=== PATIENT | female | born 1985 | race Caucasian/White ===

== ENCOUNTER 2024-05-01 10:27 | Day surgery (SDC) | payer MEDICAID, SELFPAY ==
--- NOTE | 2024-04-30 17:05 | PCM.HP.BLA ---
History and Physical Date of Admission: 05/01/24 HPI: The patient is a 39 year old female presenting for pre-operative visit. She is scheduled for Suction D&C, for 9 week missed ab on 05/01/24. Procedure discussed along with risks, benefits and complications. Other alternatives discussed for management. Consent form signed? Yes. PAST MEDICAL HISTORY PAST MEDICAL HISTORY Diagnosis Date ? Acne vulgaris ? Attention deficit hyperactivity disorder (ADHD), unspecified ADHD type ? Chronic hypertension ? Generalized anxiety disorder ? Goiter ? Graves disease ? History of pre-eclampsia ? HTN (hypertension) ? Personal history of nicotine dependence ? Trichomoniasis PAST SURGICAL HISTORY PAST SURGICAL HISTORY Procedure Laterality Date ? TOOTH EXTRACTION CURRENT MEDICATIONS Current Outpatient Medications Medication Sig Dispense Refill ? labetalol (TRANDATE) 300 mg tablet Take 300 mg by mouth three times a day. ? metroNIDAZOLE (FLAGYL) 500 mg tablet Take 1 tablet by mouth two times a day for 7 days. 14 tablet 0 ? metroNIDAZOLE (FLAGYL) 500 mg tablet Take 1 tablet by mouth two times a day for 7 days. 14 tablet 0 No current facility-administered medications for this visit. ALLERGIES: Patient has no known allergies. PERSONAL HISTORY: SOCIAL HISTORY Social History Tobacco Use ? Smoking status: Former ? Smokeless tobacco: Never Vaping Use ? Vaping Use: Never used Substance Use Topics ? Alcohol use: Not Currently Comment: once every 6 months ? Drug use: Never FAMILY HISTORY: FAMILY HISTORY FAMILY HISTORY Problem Relation Age of Onset ? other (heart issues) Mother Heart valve mitral valve ? other (epilepsy) Father ? Hypertension Maternal Grandmother ? Hyperthyroidism Maternal Grandmother ? No Known Problems Maternal Grandfather ? No Known Problems Paternal Grandmother ? No Known Problems Paternal Grandfather REVIEW OF SYMPTOMS: PHYSICAL EXAMINATION: VITALS: Blood pressure 124/78, pulse 82, height 171.5 cm (5' 7.5), weight 85.7 kg (189 lb), last menstrual period 02/20/2024, SpO2 100%, not currently . GENERAL: The patient is well nourished, well hydrated in no acute distress. , The patient is oriented to time, place, and person. NECK: Supple. No lynphadenopathy, normal thyroid, no thyromegaly. LUNGS: Clear to auscultation bilaterally. no wheezes, rhonchi or rales HEART: Regular rate and rhythm, Normal heart sounds, and No murmurs or gallops IMPRESSION: 9 week missed PLAN: The risks/benefits/alternatives and personal involved for the planned suction D&C were reviewed with the patient. Her questions were answered to her satisfaction and she desires to proceed. Consent was signed. I reviewed with her postop instructions and expectations. Desires pathology disposal of POCs declines genetic testing of POCs declines contraception at time of surgery preop flaygl for trich and doxy for routine prophylaxis I have reviewed and updated past medical and surgical history, medications and allergies Assessment & Plan Assessment/Plan (1) Missed : (2) 9 weeks gestation of : (3) Trichomonal infection:
--- NOTE | 2024-05-01 10:44 | PCM.PRE.AN2 ---
ASA Classification* ASA Classification ASA Classification: 2 Assessment & Plan Anesthesia* Anesthesia Assessment Anesthesia Assessment: Discussed sedation and/or anesthesia options, risks, benefits, and alternatives with patient/parents/legal guardian/POA. Questions invited. The patient/parents/legal guardian/POA seems to understand and agrees to proceed with anesthesia plan. Reviewed the physical assessment, medical history, allergy history and patient home medications list prior to surgery/procedure/anesthetic and documented any changes. Performed airway and anesthesia risk assessments. 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 When Was Last Pacemaker Check QUESTION #4 FULL TEXT: You/Your Family Experience fever (hyperthermia) with Anesthesia Last Oral Intake Last Oral intake: Last Oral Intake NPO since Meds taken in AM with sips of water? 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 Has anyone observed you stop No 04/30/24 11:50 breathing during sleep? STOP Results Negative 04/30/24 11:50 QUESTION #5 FULL TEXT : Do you snore loudly (louder than talking or can be heard through closed doors)? 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 Specify any problems Hx of Preganancy in last 3 Yes 04/30/24 11:50 Months Nurse Filling Out Transfusion VCHRISTIN 04/30/24 11:50 & Questions: Date: 04/30/24 04/30/24 11:50 Time: 11:51 04/30/24 11:50 Patient unable to answer at this time (ie. 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: /Reproductive Hx- high school assistant football coach Hx Now Yes 04/30/24 11:50 Gestational Age (in weeks): EDC: Hx Hx Para Hx Section SAB No 04/30/24 11:50 Active Medications Active Medications: Current Medications Generic Name Dose Route Start Last Admin Trade Name Freq PRN Reason Stop Dose Admin Doxycycline Monohydrate 200 mg 05/01/24 12:00 Doxycycline 100 Mg Capsule PO 05/01/24 12:01 PREOP ONE Metronidazole 500 mg in 100 mls @ 100 mls/hr 05/01/24 12:00 Flagyl IV 05/01/24 12:59 PREOP ONE Lactated Ringer's 1,000 mls @ 15 mls/hr 05/01/24 10:45 IV .Q48H SHARI PFSH Medical History Anemia DVT (deep venous thrombosis) Excessive bleeding Non-smoker Hypertension Home Medications ?Medication ?Instructions ?Recorded ?Last Taken ?Type labetalol 300 mg tablet 300 mg PO TID 04/30/24 Unknown History Allergy/AdvReac Type Severity Reaction Status Date / Time No Known Allergies Allergy Verified 04/30/24 11:45 Social History Smoking Status: Never smoker Review of Systems (Anesthesia) ROS Narrative System reviewed and no additional complaints, except as documented.
[2024-05-01 10:59] VITALS: BP 113/81; PULSE 82; RESP 16; TEMP 36.1; O2SAT 100; BMI 29.7
[2024-05-01] MEDS: Doxycycline 100 MG CAPSULE 200 MG PO (11:04)
[2024-05-01] MEDS: Lactated Ringers 1,000 ML 15 ML IV (11:04)
[2024-05-01] MEDS: Lubricating Jelly 60 GM Tube 30 GM (11:11)
[2024-05-01 11:22] LABS: Hematocrit 39.4 % (37-47); Hemoglobin 13.3 g/dL (12.0-15.0); Mean Corp Hgb Conc 33.8 g/dL (32-36); Mean Corpuscular Hgb 31.4 pg (27.0-32.0); Mean Corpuscular Volume 92.9 fL (81-99); Mean Platelet Vol. 10.6 fl (6.2-12.0); Platelet Count 297 K/mm3 (150-450); RBC Distribution Width CV 12.6 % (11.6-14.6); Red Blood Count 4.24 M/mm3 (4.2-5.4); White Blood Count 7.6 K/mm3 (4.4-11.0)
--- NOTE | 2024-05-01 12:00 | POC_PTH ---
PATIENT: ABBEY ABERNATHY [place] [facility] [place][id number] AGE/SX: 39/F ROOM: RE05/01/[address]: Dr. Nini James MD : 1985 BED: DIS: 05/01/2024 SPEC #: [id number] RECD: 05/01/24 13:48 STATUS: YUDELKA DANYA #: [id number] CALIN: 05/01/24 12:[address]: Nini James DEPT: SURGICAL PATHOLOGY RECD BY: Angie Lo ENTERED: 05/02/24 07:58 SP TYPE: PROD CONC OTHR DR: No Primary Care Phys Tissues: Product of conception, NOS Procedures: Surgery Specimen Level IV HEADER OPERATION: D&C, suction PRE-OP DIAGNOSIS: Missed , 9 weeks gestation of , trichomonal infection TISSUE SUBMITTED: Products of conception MICROSCOPIC DIAGNOSIS Endometrium, curettage: Chorionic villi, decidualized stroma and trophoblastic cells (products of conception). AM: 05/03/2024 MICROSCOPIC DESCRIPTION Slides are reviewed. GROSS DESCRIPTION Received in fixative is one container labeled with the patient's name and designated Products of conception. The specimen consists of multiple irregular fragments of fletcher soft tissue that in aggregate measure 8.0 x 8.0 x 1.0 cm. Cnc Machine Setter portions are submitted in two cassettes. BRITNI/ 05/02/2024 TC:5 CPT:26413
[2024-05-01 12:05] LABS: hCG Titer Quant., Serum 9473 mIU/mL (1-3)
--- NOTE | 2024-05-01 12:35 | OP.PCM_ITS ---
Report of Operation Date of Procedure: 05/01/24 Pre-Operative Diagnosis: Missed at 9 weeks Post-Operative Diagnosis: Same Surgery/Procedure Performed:: Suction dilation and curettage Description of Surgical Findings:: 9 week size uterus and products of conception Surgeon: Dimple Taylor sewer digger: None Type of Anesthesia: MAC Specimen's removed: products of conception Estimated Blood Loss (mL): 75 Fluids Replaced: 1000ml Description of Procedure: Patient taken to OR where MAC anesthesia was placed and foung to be adequate. Patient placed on dorsal lithotomy position. She was prepped and draped. Cervix grasped with tenaculum and gently dilated. #9 suction curette gently inserted and removed 6 times for good return of POCs. Gentle sharp curettage performed to confirm no retained no POC's. TAUS also performed. At end of pro cedure vaginal sweep performed. All counts correct. Procedure Start Time: 12:43 Procedure Stop Time: 12:56 Complications none Admit VTE Documentation VTE Present on Admission: No
--- NOTE | 2024-05-01 13:03 | PCM.DC ---
Discharge Instructions Diet Discharge Diet: No restrictions Activity Discharge Activity: May Not Shower May resume sexual activity in: 2 weeks Weight Bearing Status: Weight bearing as tolerated Dressing / Incision Call your doctor if you observe: Fever of 101 or Higher, Coldness, Increased Pain, Change in Color, Inability to urinate, Using more than 1 pad per hour, Shortness of breath, Dizziness, Fainting spells, Chest pain, Increased palpitations (irregular heartbeat), Calf discomfort and Uncontrolled pain Follow Up Care Please Follow Up With: Dimple Taylor When: 2 weeks Test Results: Test results from this visit will be discussed in further detail at your follow-up appointment, if applicable. Discharge Plan Admission Primary Reason for Your Visit: Miscarriage Attending Provider: Nini James Primary Care Provider: Care PhysicianTory Primary Instructions Print Language: Japanese Discharge Orders/Prescriptions Prescriptions: No Action labetalol 300 mg tablet 300 mg PO TID Disposition Disposition (needs filled in before D/C Order can be placed): Home, Self Care
[2024-05-01 13:05] VITALS: BP 104/69; BP 113/81; PULSE 76; RESP 16; TEMP 36.2; O2SAT 96
[2024-05-01 13:06] VITALS: BP 104/69; PULSE 70; RESP 14; TEMP 36.3; O2SAT 98
--- NOTE | 2024-05-01 13:06 | PCM.POST.ANE ---
Anesthesia: Postop Eval I Current Vital Signs Temperature: 97.3 F Pulse Rate: 70 Blood Pressure: 104/69 Respiratory Rate: 14 Pulse Ox: 98 Oxygen Delivery Method: Room Air Assessment Airway patent: Yes Spontaneous unlabored respirations: Yes Mental status: Awake and Calm nausea: No Vomiting: No Anesthesia Complication: No Fluid Hydration Crystalloid volume administer (ml): 800 Total IV fluid infused: 800 Progress Note Anesthesia document: Postop Eval 1 completed: Yes
[2024-05-01 13:10] VITALS: BP 101/69; BP 113/81; PULSE 76; RESP 16; O2SAT 95
[2024-05-01 13:15] VITALS: BP 112/78; BP 113/81; PULSE 78; RESP 16; TEMP 36.9; O2SAT 98
[2024-05-01 13:56] VITALS: BP 113/81
--- NOTE | 2024-05-01 14:11 | POSTOPAN2_ITS ---
Anesthesia Postop Eval I Sum Postop Eval Completion status Anesthesia document: Postop Eval 1 completed: Yes Anesthesia Postop Eval I Summary Anesthesia Postop Eval I Summary: Anesthesia Postop Eval I: Assessment Summary Airway patent Yes 05/01/24 13:06 DUMPER OPERATOR.[email or web address] Spontaneous unlabored Yes 05/01/24 13:06 DUMPER OPERATOR.[email or web address] respirations Mental status Awake,Calm 05/01/24 13:06 DUMPER OPERATOR.PADMALOU nausea No 05/01/24 13:06 DUMPER OPERATOR.PADMALOU Vomiting No 05/01/24 13:06 DUMPER OPERATOR.PADMALOYolanda Anesthesia Postop Eval I: Fluid Summary Crystalloid volume administer 800 05/01/24 13:06 DUMPER OPERATOR.PADMALOYolanda (ml) Colloids volume administered ( ml) Blood Product volume administered (ml) Total IV fluid infused 800 05/01/24 13:06 DUMPER OPERATOR.BHAVESH Anesthesia Postop Eval I: Summary Notes Anesthesia Complication No 05/01/24 13:06 DUMPER OPERATOR.BHAVESH Anesthesia Complication Comment: Post-operative progress note Anesthesia: Postop Eval II Evaluation Mental status: Awake and Calm Pain Level: 1 nausea: No Vomiting: No Complications Anesthesia Complication: No
--- NOTE | 2024-05-01 14:11 | PCM.POSTANE2 ---
Anesthesia Postop Eval I Sum Postop Eval Completion status Anesthesia document: Postop Eval 1 completed: Yes Anesthesia Postop Eval I Summary Anesthesia Postop Eval I Summary: Anesthesia Postop Eval I: Assessment Summary Airway patent Yes 05/01/24 13:06 PATTERN ROOM ATTENDANT.[email or web address] Spontaneous unlabored Yes 05/01/24 13:06 PATTERN ROOM ATTENDANT.[email or web address] respirations Mental status Awake,Calm 05/01/24 13:06 PATTERN ROOM ATTENDANT.PADMALOU nausea No 05/01/24 13:06 PATTERN ROOM ATTENDANT.PADMALOU Vomiting No 05/01/24 13:06 PATTERN ROOM ATTENDANT.PADMALOYolanda Anesthesia Postop Eval I: Fluid Summary Crystalloid volume administer 800 05/01/24 13:06 PATTERN ROOM ATTENDANT.PADMALOYolanda (ml) Colloids volume administered ( ml) Blood Product volume administered (ml) Total IV fluid infused 800 05/01/24 13:06 PATTERN ROOM ATTENDANT.BHAVESH Anesthesia Postop Eval I: Summary Notes Anesthesia Complication No 05/01/24 13:06 PATTERN ROOM ATTENDANT.BHAVESH Anesthesia Complication Comment: Post-operative progress note Anesthesia: Postop Eval II Evaluation Mental status: Awake and Calm Pain Level: 1 nausea: No Vomiting: No Complications Anesthesia Complication: No
--- NOTE | 2024-05-01 14:15 | SUR.PHASEII ---
OFFICE CALLED AGAIN, STATES THEY STILL HAVEN'T RECEIVED FAX FOR DR TO SIGN. ATTEMPTED TO FAX PAPERWORK AGAIN
== END 2024-05-01 14:15 | disposition home or self-care (01) ==
LOC: SDC 10:31 → AC 10:33
PROVIDERS: Obstetrics & Gynecology; Visit Provider Obstetrics & Gynecology
DX: O02.1 Missed abortion (principal); I10 Essential (primary) hypertension; Z79.899 Other long term (current) drug therapy; Z87.891 Personal history of nicotine dependence; Z86.718 Personal history of other venous thrombosis and embolism
CPT/HCPCS: 59820; 01965; 84702; 85027; 88305; J7120; J2405

== ENCOUNTER 2025-02-15 18:00 | Outpatient (CLI) | payer MEDICAID, SELFPAY ==
[2025-02-15 18:15] VITALS: BMI 31.6
[2025-02-15 18:20] VITALS: BP 135/98; PULSE 85
[2025-02-15 18:35] VITALS: BP 135/87; PULSE 82
[2025-02-15 18:50] VITALS: BP 130/91; PULSE 82
[2025-02-15 19:04] VITALS: BP 135/92; PULSE 79
[2025-02-15 19:19] VITALS: BP 134/95; PULSE 79
[2025-02-15] MEDS: Lactated Ringers 1,000 ML 999 ML IV (19:32)
[2025-02-15 19:39] LABS: Hematocrit 38.2 % (37-47); Mean Corpuscular Hgb 31.9 pg (27.0-32.0); Mean Corpuscular Volume 93.9 fL (81-99); Mean Platelet Vol. 11.4 fl (6.2-12.0); Platelet Count 274 K/mm3 (150-450); RBC Distribution Width CV 12.7 % (11.6-14.6); Red Blood Count 4.07 M/mm3 (4.2-5.4); White Blood Count 8.1 K/mm3 (4.4-11.0)
[2025-02-15 19:56] LABS: AST(SGOT) 38 U/L (<=31); Alanine Aminotransfer ALT/SGPT 31 U/L (<=34); Creatinine, Serum 0.66 mg/dL (0.70-1.20); EST Glomerular Filtration Rate 115 (>60)
[2025-02-15 20:08] LABS: Protein, Urine (Random) 15.2 mg/dL (0.0-12.0); Protein:Creat Ratio 76 mg/g CRE (0-200)
[2025-02-15 20:20] VITALS: BP 125/82; PULSE 76; RESP 16; TEMP 36.4
--- NOTE | 2025-02-15 20:37 | OB.TRI.HP_ITS ---
HPI - General General Date of Admission: 02/15/25 Date of Service: 02/15/25 Chief Complaint: nonreactive NST HPI Narrative ABBEY ABERNATHY, is a 39 F who presents -1-1-4 at 33 weeks with a EDC of 04/02/2025 presents from the office for prolonged monitoring. She had a nonreactive NST in the office. Patient [place] any headache, visual changes, contractions, epigastric pain or significant increase in edema. Patient states her blood pressures at home have been running in the 130s over 85-90 range. She was told last week to start Procardia but was afraid it would make my blood pressure too low she has a history of preeclampsia in a previous . is complicated 8 by advanced maternal age, abnormal Pap smear with high risk HPV positive, Rh-, history of preeclampsia, history of Graves' disease and is on Synthroid, depression, heartburn, nausea and vomiting in and history of trichomonas earlier in . [facility] Medical History Anemia DVT (deep venous thrombosis) Excessive bleeding Non-smoker Hypertension Home Medications ?Medication ?Instructions ?Recorded ?Last Taken ?Type labetalol 300 mg tablet 300 mg PO TID 04/30/2402/15 History bupropion HCl 100 mg tablet 100 mg PO DAILY 02/15/25 0 02/14/25 History famotidine 40 mg tablet 40 mg PO DAILY 02/15/25 Unkn own History nifedipine 30 mg tablet,extended 30 mg PO DAILY Unknown History release 24 hr vit 33-iron 29 mg-folic 1 pkg PO DAILY pregna ncy 02/15/25 02/14/25 History acid 1 mg-dha 250 mg oral combo pack (Select-OB + DHA) Allergy/AdvReac Type Severity Reaction Status Date / Time No Known Allergies Allergy Verified 02/15/25 18:25 Social History Smoking Status: Never smoker Physical Exam Narrative Abdomen: Soft, nondistended, fundal height gravid appropriate for gestational age Extremities: 1+ edema, 2+ DTRs, no clonus Consent for sensitive exam performed and verbal consent obtained. Nursing present for sensitive exam Normal external genitalia, some mild edema of the vulva, normal perineum, normal hair distribution pattern. Cervix is 1 thick and high posterior and firm Const alert and no apparent distress General Appearance: cooperative NST FHR Rate Baby A Baseline: 120 Variability:: Moderate Accelerations:: 15 x 15 Decelerations:: Variable NST Reactive:: Yes FHR Category:: Category I (for 20 min after variable) Uterine Activity:: irreg ctxs Assessment & Plan (1) High-risk , elderly multigravida in third trimester: (2) 33 weeks gestation of : (3) Previous delivery in third trimester, antepartum: (4) Chronic hypertension affecting : PLAN: Plan NST is reactive here and reassuring. Will consider BPP's versus continuing NSTs. Up-to-date on growth scans. Discussed with her return or call for signs or symptoms of preeclampsia. Continue to monitor blood pressures at home. Encouraged to add Procardia as recommended last week in the office and discussed with her reasoning for this and goal of blood pressures to 130/80. GBS collected in case of indicated delivery or labor. Patient having contractions today but did not appreciate them and no evidence of active labor on cervical exam. Follow-up in the office next week as scheduled or return as needed. Patient is comfortable with this plan.
[2025-02-15 21:11] LABS: Uric Acid 6.6 mg/dL (2.6-6.0)
== END 2025-02-15 21:00 | disposition home or self-care (01) ==
LOC: WPOUT 18:05 → WP 18:05
PROVIDERS: Obstetrics & Gynecology; Referring Provider Advanced Practice Midwife; Visit Provider Advanced Practice Midwife
DX: O09.523 Supervision of elderly multigravida, third trimester (principal); Z3A.33 33 weeks gestation of pregnancy; O99.283 Endocrine, nutritional and metabolic diseases complicating pregnancy, third trimester; E05.00 Thyrotoxicosis with diffuse goiter without thyrotoxic crisis or storm; O10.913 Unspecified pre-existing hypertension complicating pregnancy, third trimester; O99.343 Other mental disorders complicating pregnancy, third trimester; F32.A Depression, unspecified; Z79.899 Other long term (current) drug therapy
CPT/HCPCS: 96360; 36415; 59025; 59050; 82565; 82570; 84156; 84450; 84460; 84550; 85027; 87081; 87653; 99221; G0378

== ENCOUNTER 2025-03-05 18:45 | Outpatient (CLI) | payer MEDICAID, SELFPAY ==
[2025-03-05 19:35] VITALS: BMI 32.2
[2025-03-05 19:38] VITALS: BP 104/72; PULSE 86; TEMP 37.1
[2025-03-05 19:40] VITALS: PULSE 84; O2SAT 98
[2025-03-05 19:42] VITALS: RESP 20
--- NOTE | 2025-03-05 20:54 | US_ITS ---
PROCEDURE: BIOPHYSICAL PROF W/O NON STRES 03/05/2025 REASON FOR EXAM: NON REACTIVE NST TECHNIQUE: Transvaginal examination of the uterus. COMPARISON: None FINDINGS Number: 1 Position: Vertex Placental Position: Anterior Placental Abnormalities: None. ESTIMATED GESTATIONAL AGE: Baseline: 36 weeks 0 days ESTIMATED DATE OF DELIVERY: Baseline: 04/02/2025 BIOPHYSICAL ASSESSMENT: Amniotic Fluid Volume: Oligohydramnios Amniotic Fluid Index: 3.1 (8-24 cm normal range) Cardiac Motion: 123 beats per minute (average) Trunk and Limb Motion: Present. Amniotic Fluid Volume: 2/2 Movements: 0/2 Tone: 2/2 Breathin/2 Total: 6/8 US/Biophysical Prof W/O Non Stres IMPRESSION: BIOPHYSICAL PROFILE SCORE 6/8. Reading [facility]
[2025-03-05] MEDS: Aspirin 81 MG TAB.CHEW 162 MG PO (22:54)
[2025-03-05] MEDS: Prenatal Vits Tablet 1 TABLET PO (22:54)
[2025-03-05 22:56] VITALS: BP 157/93; PULSE 73; RESP 20; TEMP 37.3; O2SAT 99
[2025-03-05 22:58] VITALS: TEMP 37.3
[2025-03-05 22:59] VITALS: BP 137/89; PULSE 74
--- NOTE | 2025-03-05 23:37 | OB.TRI.NOTE ---
HPI - General General Date of Admission: 03/05/25 Date of Service: 03/05/25 Chief Complaint: Non reactive NST HPI Narrative BABEY ABERNATHY, is a 39 F who presents from office with nonreactive NST. BPP in office with no official result but initially reported as 6/8 for fluid however there was a 2x2 pocket. HR on unit nonreactive. BPP ordered. 6/8 off for movement. MOHAN 3 with a 2x2 pocket. Patient kept for observation. Continuous monitoring and repeat BPP in am. HR without accels until after midnight. No FHR decelerations. Reactive since midnight. BP normal to low mild. Takes procardia and labetalol for CHTN. Maternal Data Information Final JIM: 04/02/25 Gestational age: 36+0 PFSH PFSH Medical History Anemia DVT (deep venous thrombosis) Excessive bleeding Non-smoker Hypertension Home Medications ?Medication ?Instructions ?Recorded ?Last Taken ?Type labetalol 300 mg tablet 300 mg PO TID 04/30/24 03/05/25 18:00 History bupropion HCl 100 mg tablet 100 mg PO DAILY 02/15/25 03/05/25 08:00 History famotidine 40 mg tablet 40 mg PO DAILY 02/15/25 03/05/25 08:00 History nifedipine 30 mg tablet,extended 30 mg PO DAILY 02/15/25 03/05/25 12:00 History release 24 hr vit 33-iron 29 mg-folic 1 pkg PO QHS 02/15/25 03/04/25 21:00 History acid 1 mg-dha 250 mg oral combo pack (Select-OB + DHA) aspirin 81 mg tablet 162 mg PO QHS 03/05/25 03/04/25 21:00 History Allergy/AdvReac Type Severity Reaction Status Date / Time No Known Allergies Allergy Verified 03/05/25 22:09 Social History Smoking Status: Never smoker History 6 Elective abortions Hx Para 4 Spontaneous abortions Hx # Term Pregnancies Ectopic pregnancies Hx # Pregnancies Multiple births # of living children NST FHR Rate Baby A Baseline: 125 Variability:: Moderate Uterine Activity:: irregular Assessment & Plan (1) Chronic hypertension affecting : (2) 36 weeks gestation of : (3) Oligohydramnios antepartum: QUALIFIERS: Fetus number: single or unspecified fetus Qualified Code(s): O41.00X0 - Oligohydramnios, unspecified trimester, not applicable or unspecified (4) heart rate nonreactive: COMMENT: Became reactive after 5 hours. BPP /. Repeat in AM PLAN: Plan Repeat BPP in AM
[2025-03-06 02:42] VITALS: BP 139/95; PULSE 68; RESP 18; TEMP 36.9
[2025-03-06 02:43] VITALS: PULSE 76; O2SAT 98
[2025-03-06] MEDS: Labetalol 100 MG Tablet 300 MG PO (02:45)
[2025-03-06 05:56] VITALS: BP 144/96; PULSE 67; PULSE 74; RESP 16; TEMP 37.6; O2SAT 100
--- NOTE | 2025-03-06 07:00 | US_ITS ---
PROCEDURE: BIOPHYSICAL PROF W/O NON STRES 03/06/2025 REASON FOR EXAM: REPEAT BPP TECHNIQUE: High resolution obstetric ultrasound performed using a 2D transducer. Standard views obtained, including biometry, anatomy survey, and Doppler studies. COMPARISON: Prior study dated March 05, 2025. FINDINGS Number: 1 Position: Vertex Placental Position: Anterior and lateral and not low-lying. Placental Abnormalities: None ESTIMATED GESTATIONAL AGE: Baseline: 36 weeks and 1 day ESTIMATED DATE OF DELIVERY: Baseline: April 02, 2025. BIOPHYSICAL ASSESSMENT: Amniotic Fluid Volume: Oligohydramnios. Amniotic Fluid Index: 3.2 (8-24 cm normal range) Cardiac Motion: 131 beats per minute (average) Trunk and Limb Motion: Present. Biophysical profile: Breathing movements: 2 Gross body movements: 2 tone: 2 Amniotic fluid volume: 2 Total score: 8/8 US/Biophysical Prof W/O Non Stres IMPRESSION: Biophysical profile score of 8/8. Reading Location: [facility]
--- NOTE | 2025-03-06 07:49 | PCM.PN.OB ---
Subjective Subjective BPP 05/17 MOHAN 3.2 same as previous. movement present. Reactive tracing overnight. BP stable. Follow up on Tuesday in office for NST IOL scheduled next Tuesday. 03/13/25 Objective Data Objective Data Vital Signs: Vital Signs Temp Pulse Resp BP Pulse Ox 99.7 F H 74 16 144/96 H 100 03/06/25 05:56 03/06/25 05:56 03/06/25 05:56 03/06/25 05:56 03/06/25 05:56 Weight: 93.44 kg Body Mass Index (BMI) 32.2 Radiography Diagnostic Testing: Radiology Impression Biophysical Profile Ultrasound 03/05/25 20:54 IMPRESSION: BIOPHYSICAL PROFILE SCORE 03/17. Reading [facility] NST FHR Rate Baby A Baseline: 125 Variability:: Moderate Accelerations:: 15 x 15 Decelerations:: None NST Reactive:: Yes Assessment & Plan (1) Oligohydramnios antepartum: QUALIFIERS: Fetus number: single or unspecified fetus Qualified Code(s): O41.00X0 - Oligohydramnios, unspecified trimester, not applicable or unspecified (2) 36 weeks gestation of : (3) Chronic hypertension affecting :
== END 2025-03-06 07:58 | disposition home or self-care (01) ==
LOC: WPOUT 18:51 → WP 18:51
PROVIDERS: Referring Provider Obstetrics & Gynecology; Visit Provider Obstetrics & Gynecology
DX: O10.913 Unspecified pre-existing hypertension complicating pregnancy, third trimester (principal); Z3A.36 36 weeks gestation of pregnancy; O41.03X0 Oligohydramnios, third trimester, not applicable or unspecified; Z79.899 Other long term (current) drug therapy; Z79.82 Long term (current) use of aspirin
CPT/HCPCS: 59025; 59050; 76819 ×2; G0378 ×2; 99221

== ENCOUNTER 2025-03-06 19:23 | Inpatient (IN) | payer MEDICAID, SELFPAY ==
[2025-03-06 19:26] VITALS: BMI 32.8
[2025-03-06] MEDS: Lactated Ringers 1,000 ML 50 ML IV (19:45)
[2025-03-06 19:56] VITALS: BP 137/95; PULSE 76; RESP 16; TEMP 37.2; O2SAT 99
--- NOTE | 2025-03-06 20:13 | HP.PCM.OB_ITS ---
HPI - General General Date of Admission: 03/06/25 HPI Narrative ABBEY ABERNATHY, is a 39 F who presents at 36w1d for induction of labor due to chronic hypertension. Denies headache, visual changes or other disturbances. Maternal Data Information JIM Calculator Estimated Delivery Date Method Current WG Current Estimate 04/02/25 Manual 36w 1d [facility] Medical History (Updated 03/06/25 @ 20:21 by Mahi Pereira CNM) Oligohydramnios Depression Pre-eclampsia Anemia DVT (deep venous thrombosis) Excessive bleeding Non-smoker Hypertension Home Medications ?Medication ?Instructions ?Recorded ?Last Taken ?Type labetalol 300 mg tablet 300 mg PO TID chronic blood 04/30/24 03/05/25 18:00 History pressure bupropion HCl 100 mg tablet 100 mg PO DAILY anxitey 03/05/25 08:00 History famotidine 40 mg tablet 40 mg PO DAILY gastric reflu x 02/15/25 03/05/25 08:00 History nifedipine 30 mg tablet,extended 30 mg PO DAILY chroni c blood 02/15/25 03/05/25 12:00 History release 24 hr presure vit 33-iron 29 mg-folic 1 pkg PO QHS pregnanc y 02/15/25 03/04/25 21:00 History acid 1 mg-dha 250 mg oral combo pack (Select-OB + DHA) aspirin 81 mg tablet 162 mg PO QHS pre e 03/05/25 03/04/25 21:00 History Allergy/AdvReac Type Severity Reaction Status Date / Time No Known Allergies Allergy Verified 03/06/25 19:36 Surgical History (Updated 03/06/25 @ 19:44 by Leonora Arias) History of surgery Social History Smoking Status: Never smoker History 6 Elective abortions Hx Para 4 Spontaneous abortions Hx # Term Pregnancies Ectopic pregnancies Hx # Pregnancies Multiple births # of living children NST FHR Rate Baby A Baseline: 130 Variability:: Moderate Accelerations:: 15 x 15 Decelerations:: None FHR Category:: Category I Uterine Activity:: None ROS Constitutional Constitutional: Reports systems reviewed and no addt'l complaints, except as documented; Denies headache(s) Eyes Eyes: Denies acute decrease in peripheral vision, blurry vision or change in vision ENT HEENT: Reports systems reviewed and no addt'l complaints, except as documented Cardiovascular Cardiovascular: Denies chest pain or dizziness Respiratory/Chest Respiratory/Chest: Denies cough, dyspnea, dyspnea on exertion, shortness of breath at rest or shortness of breath with exertion Gastrointestinal Gastrointestinal: Denies abdominal pain, diarrhea, nausea or vomiting Genitourinary Genitourinary: Denies abdominal discomfort Musculoskeletal Musculoskeletal: Denies limited range of motion Integumentary Integumentary: Reports systems reviewed and no addt'l complaints, except as documented Neurologic Neurologic: Reports systems reviewed and no addt'l complaints, except as d ocumented Psychiatric Psychiatric: Reports systems reviewed and no addt'l complaints, except as documented Endocrine Endocrinology: Reports systems reviewed and no addt'l complaints, except as documented Hematologic/Lymphatic Hematologic/Lymphatic: Reports systems reviewed and no addt'l complaints, except as documented Allergic/Immunologic Allergic/Immunologic: Reports systems reviewed and no addt'l complaints, except as documented Vital Signs Vital Signs Vital Signs: 03/06/25 19:56 03/06/25 19:56 03/06/25 19:56 Temperature Temperature Source Temporal Pulse Rate 76 Respiratory Rate Blood Pressure 137/95 H BP Systolic 137 BP Diastolic 95 Pulse Ox 03/06/25 19:56 03/06/25 19:56 03/06/25 19:56 Temperature 99.0 F Temperature Source Pulse Rate Respiratory Rate 16 Blood Pressure BP Systolic BP Diastolic Pulse Ox 99 Weight Weight: 209 lb 6 oz Body Mass Index (BMI) 32.8 Physical Exam Const alert and oriented x3 General Appearance: cooperative Orientation / Consciousness: awake, oriented to person, oriented to place and oriented to time Exam Limitations: no limitations HEENT normocephalic Head and Scalp: normal to inspection, normocephalic and atraumatic Face and Sinus: normal facial exam Eyes General Eye: normal appearance of both eyes Neck full ROM Chest Chest: symmetrical chest wall rise Resp normal respiratory effort and normal air movement Auscultation: clear to auscultation bilaterally Cardio regular rate, regular rhythm, S1 normal heart sound, S2 normal heart sound, no murmurs, no rub, no gallops and no clicks GI normal to inspection, nondistended, normoactive bowel sounds and non-tender appearance of the vagina normal Bladder / Kidney Exam: no CVA tenderness Manual OB Exam: presentation cephalic, dilated 1cm, effaced 50, station -3 and other [place] inserted through cervix, 30ml ns instilled. Tolerated well. Back/Spine normal ROM Extremity normal to inspection and full ROM Skin no rashes or lesions noted Neuro oriented x3, CN's II-XII intact bilaterally and moves all extremities Sensorium / Orientation: awake, alert and oriented to person Motor Exam: clonus absent Deep Tendon Reflexes: Rt Patellar (L4): 2+ and Lt Patellar (L4): 2+ Labs Labs Labs: Blood Type Pending Antibody Screen Pending Hct 38.2 % (37-47) Hgb 13.0 g/dL (12.0-15.0) GC/CT negative trich negative 03/05/25 thyroglobulin antibody 2.8 on 02/28 RPR negative O Negative Rubella Immune HBsAG negative HepC non reactive HIV non reactive Assessment & Plan (1) 36 weeks gestation of : (2) Oligohydramnios antepartum: QUALIFIERS: Fetus number: single or unspecified fetus Qualified Code(s): O41.00X0 - Oligohydramnios, unspecified trimester, not applicable or unspecified (3) Chronic hypertension affecting : (4) History of Graves' disease: (5) AMA (advanced maternal age) multigravida 35+: (6) History of depression: (7) History of anxiety: (8) History of pre-eclampsia: (9) Trichomonal vaginitis during : (10) Encounter for induction of labor: (11) Rh negative state in antepartum period: COMMENT: o negative (12) History of delivery of macrosomal : PLAN: Plan 1) Admit to labor and delivery 2) Routine labs and preeclampsia labs 3) Continuous EFM 4) Pain management upon request 5) Okeefe and cytotec for cervical ripening and then pitocin 6) Dr. Carter collaborative physician and notified of patient status, above assessment, and plan.
[2025-03-06] MEDS: 0.9% Normal Saline Single 100 ML IV.SOLN. INTRA-UTER (20:28)
[2025-03-06 20:39] LABS: Absolute Lymphocyte Count 1.94 X10^3/uL (0.83-4.51); Absolute Neutrophil Count 4.8 X10^3/uL (2.0-7.7); Basophil# 0.02 X10^3/uL; Basophil% 0.3 % (0-1); Eosinophil# 0.22 X10^3/uL; Hematocrit 32.7 % (37-47); Hemoglobin 11.3 g/dL (12.0-15.0); Lymphocyte # 1.94 X10^3/ul (0.83-4.51); Lymphocyte % 26.3 % (19-41); Mean Corp Hgb Conc 34.6 g/dL (32-36); Mean Corpuscular Volume 92.6 fL (81-99); Mean Platelet Vol. 12.2 fl (6.2-12.0); Monocyte# 0.43 X10^3/uL; Monocyte% 5.8 % (0-10); NRBC Flagged by Analyzer 0 % (0-5); Neutrophil # 4.77 X10^3/uL (2.7-7.7); Neutrophil % 64.5 % (47-70); Platelet Count 216 K/mm3 (150-450); RBC Distribution Width CV 13.1 % (11.6-14.6); RBC Distribution Width SD 44.4 fl (35.1-43.9); Red Blood Count 3.53 M/mm3 (4.2-5.4); White Blood Count 7.4 K/mm3 (4.4-11.0)
[2025-03-06 21:45] LABS: AST(SGOT) 39 U/L (<=31); Uric Acid 6.3 mg/dL (2.6-6.0)
[2025-03-06 21:46] VITALS: BP 142/90; PULSE 75
[2025-03-06 21:46] LABS: Protein, Urine (Random) 21.4 mg/dL (0.0-12.0); Protein:Creat Ratio 107 mg/g CRE (0-200)
[2025-03-06 22:16] LABS: Alanine Aminotransfer ALT/SGPT 28 U/L (<=34); EST Glomerular Filtration Rate 118 (>60); Estimated Creatinine Clearance 150.42 ml/min (50-250); Syphilis Antibodies Nonreactive (Nonreactive)
[2025-03-06 23:15] LABS: Amphetamine Urine PRESUMPTIVE POSITIVE (<1000 ng/mL); Barbiturate Urine NEGATIVE (< 200 ng/mL); Benzodiazepine Urine NEGATIVE (< 200 ng/mL); Buprenorphine Urine NEGATIVE (< 200 ng/mL); Cocaine Urine NEGATIVE (< 300 ng/mL); Fentanyl, Urine NEGATIVE; Methadone Urine NEGATIVE (< 300 ng/mL); Opiates Urine NEGATIVE (< 300 ng/mL); Oxycodone, Urine NEGATIVE (< 100 ng/mL); PCP Urine NEGATIVE (< 25 ng/mL); THC Urine NEGATIVE (< 50 ng/mL)
[2025-03-07] VITALS (50 sets, daily range): BP systolic 108–196; BP diastolic 69–110; PULSE 57–86; RESP 14–16; TEMP 36.1–37.1; O2SAT 98–100
[2025-03-07] MEDS: Oxytocin 15 Units/NS 250ml 15 UNITS/250 ML IV.SOLN 2 UNITS IV (04:15)
[2025-03-07] MEDS: Lactated Ringers 1,000 ML 999 ML IV (04:38)
[2025-03-07] MEDS: fentaNYL-bupivacaine (epidural) 100 ML BAG EPIDURAL ×2 (05:03→09:20)
[2025-03-07] MEDS: Labetalol 100 MG Tablet 300 MG PO ×3 (07:37→22:33)
[2025-03-07] MEDS: Lactated Ringers 1,000 ML 200 ML IV (08:29)
--- NOTE | 2025-03-07 08:52 | PCM.PN.BLA ---
Progress Note Pain well-controlled with an epidural. Denies headache or visual changes. Cervix 5/80/-2, artificial rupture membranes with moderate amount of clear fluid return BPs are stable. Continue to monitor blood pressures. Estimated weight is less than 4500 g and pelvis clinically adequate to expect vaginal delivery.
[2025-03-07] MEDS: LACTATED RINGERS 500 ML 999 ML IV (11:28)
--- NOTE | 2025-03-07 12:39 | PLAC_PTH ---
PATIENT: ABBEY ABERNATHY LOC: [facility] U#:[id number] AGE/SX: 39/F ROOM: [facility] RE03/06/[address]: Dr. Nini James MD : 1985 BED: 1 DIS: 03/08/2025 SPEC #: [id number] RECD: 03/08/25 06:53 STATUS: YUDELKA REQ #: [id number] CALIN: 03/07/25 12:[address]: Nini James DEPT: SURGICAL PATHOLOGY RECD BY: Sheng Esparza ENTERED: 03/08/25 08:37 SP TYPE: PLACENTA OT DR: No Primary Care Phys Tissues: A - Placenta, NOS Procedures: Surgery Specimen Level V HEADER OPERATION: Delivery PRE-OP DIAGNOSIS: HTN TISSUE SUBMITTED: A- Placenta MICROSCOPIC DIAGNOSIS A. Placenta, delivery: * Eccentrically inserted and trivascular umbilical cord without active inflammation and with one true knot with perivascular hemorrhage * Marginally inserted membranes without active inflammation * Mature (third trimester) placenta without active inflammation and with 3 intramural infarctions from 1.5 to 4.9 cm in maximum diameter and involving ~7% of the parenchymal surface MICROSCOPIC DESCRIPTION Slides are reviewed. GROSS DESCRIPTION A. Received fresh in a container labeled with the patient's name, date of , and with no further designation is an 18.5 x 15.0 x 3.0 cm neely discoid placenta with a trimmed weight of 455 g. The eccentrically located white-fletcher umbilical cord exhibits 3 vessels and is 30 cm in length X 0.9 cm in diameter. There is a 4.5 cm in length area of red-black hemorrhage with an edematous appearance. There are approximately 7 coils per 10 cm. Received free-floating in the same container is an additional 41 cm in length X 1.2 cm in diameter segment of umbilical cord. This segment has a true knot situated 3.0 cm from the closer end. The knot is easily unraveled, and has a flattened surface measuring 0.4 cm in thickness. The membranes are fletcher-pink with a 100% marginal attachment. The surface is pink-naidu with prominent vasculature. The maternal surface exhibits red-naidu cotyledons that appear predominantly complete with a moderate amount of easily removed blood clot material. Serial sections reveal 3 white-fletcher, firm, and rubbery foci with scattered hemorrhage ranging from 1.5 x 1.2 x 1.1 cm to 4.9 x 4.7 x 2.0 cm. These areas comprise approximately 7% of the parenchymal surfaces. The remaining surfaces are maroon and spongy. Manual Training Teacher sections:A1. Umbilical cord from area of true knotA2. Umbilical cord from segment attached to disc with membrane roll A3. Full-thickness section from largest rubbery and hemorrhagic areaA4. Manual Training Teacher full-thickness section [facility] 03-08-2025 CPT:06767
--- NOTE | 2025-03-07 12:59 | OB.VAGDELI_ITS ---
Assessment & Plan (1) AMA (advanced maternal age) multigravida 35+: (2) Oligohydramnios antepartum: QUALIFIERS: Fetus number: single or unspecified fetus Qualified Code(s): O41.00X0 - Oligohydramnios, unspecified trimester, not applicable or unspecified (3) 36 weeks gestation of : (4) Chronic hypertension affecting : (5) (spontaneous vaginal delivery): Maternal Data Information JIM Calculator Estimated Delivery Date Method Current WG Current Estimate 04/02/25 Manual 36w 2d Final JIM: 04/02/25 Gestational age: 36 2/7 Vaginal Delivery Maternal Presentation Maternal Presentation: Medically Indicated Induction Type of Induction: Pitocin, Okeefe Bulb and Amniotomy Vaginal Delivery Information Procedure Performed: Spontaneous Vaginal Delivery Surgeon/Practitioner: Nini James Date of Procedure: 03/07/25 Pre-Procedure Diagnosis: labor, chronic htn, h/o preeclampsia Post-Procedure Diagnosis: same Type of anesthesia: Spinal Estimated Blood Loss: 200 Time of Delivery: 12:39 Findings Description of procedure: A vigorous male infant was delivered ROP over an intact perineum. A loose nuchal cord ?1 was easily reduced. The remainder the was delivered with maternal pushing and gentle traction only in less than 15 seconds. The Pitocin infusion was initiated for active management of the third stage. The cord was clamped and cut after 1 minute. The infant was attended to by the waiting nursing staff. The placenta was delivered spontaneously and intact. The cervix and vagina were intact. Sponge and needle counts were correct. A vaginal sweep was completed by me. Procedure findings: vigorous male Presentation: ROP Amniotic Membrane Rupture Type: Artificial Amniotic Fluid Description: Clear Placental Delivery Description: Spontaneous Placenta Disposition: [facility] Specimen collected: Yes Description of specimen(s) removed: placenta Cord Vessel Description: 3 Vessels Cord Entanglement: Around neck x 1, loose and True Knot(s) (x1 loose) Nuchal Cord Compression: Without compression A Gender: Male (Fransisco) (1 minute): 8 (5 minute): 9 Delayed Cord Clamping: Yes Factory Superintendent staffing consultant: No Post Vaginal Deli Medications given after delivery: IV Pitocin Episiotomy Description: None Laceration: None Complication Complications: No
[2025-03-07] MEDS: Oxytocin 15 Units/NS 250ml 15 UNITS/250 ML IV.SOLN 83 UNITS IV (13:20)
[2025-03-07] MEDS: NIFEdipine 30 MG Tablet PO (15:28)
[2025-03-07] MEDS: Ibuprofen 600 MG Tablet PO (19:51)
[2025-03-08] VITALS (9 sets, daily range): BP systolic 106–137; BP diastolic 62–86; PULSE 62–74; RESP 16–20; TEMP 36.3–36.7; O2SAT 96–98
[2025-03-08] MEDS: Labetalol 100 MG Tablet 300 MG PO ×2 (06:41→15:17)
[2025-03-08 06:55] LABS: Absolute Neutrophil Count 4.9 X10^3/uL (2.0-7.7); Basophil# 0.02 X10^3/uL; Basophil% 0.2 % (0-1); Eosinophils% 3.4 % (0-5); Hematocrit 30.1 % (37-47); Hemoglobin 10.2 g/dL (12.0-15.0); Lymphocyte % 33.2 % (19-41); Mean Corp Hgb Conc 33.9 g/dL (32-36); Mean Corpuscular Hgb 31.6 pg (27.0-32.0); Mean Corpuscular Volume 93.2 fL (81-99); Mean Platelet Vol. 11.5 fl (6.2-12.0); Monocyte# 0.57 X10^3/uL; Monocyte% 6.5 % (0-10); NRBC Flagged by Analyzer 0 % (0-5); Neutrophil # 4.93 X10^3/uL (2.7-7.7); Neutrophil % 56.5 % (47-70); Platelet Count 188 K/mm3 (150-450); RBC Distribution Width CV 13.1 % (11.6-14.6); RBC Distribution Width SD 44.5 fl (35.1-43.9); Red Blood Count 3.23 M/mm3 (4.2-5.4); White Blood Count 8.7 K/mm3 (4.4-11.0)
--- NOTE | 2025-03-08 08:57 | PCM.PROGNOTE ---
Subjective Subjective patient seen at bedside, doing well. Patient reports good pain control. lochia mild. denies MURRIETA, visual changes Objective Data Objective Data Vital Signs: Vital Signs Temp Pulse Resp BP Pulse Ox O2 Del Method 98.1 F 68 20 H 106/62 96 Room Air 03/08/25 07:57 03/08/25 07:57 03/08/25 07:57 03/08/25 07:57 03/08/25 03:34 03/08/25 07:57 Oxygen Delivery Method Room Air Weight: 94.971 kg Body Mass Index (BMI) 32.8 Intake & Output: Intake and Output for Last 24 Hours 03/06/25 03/07/25 03/08/25 23:59 23:59 23:59 Intake Total 3833.33 / 3833.33 Output Total 700 / 700 Balance 3133.33 / 3133.33 Lab / Micro Data 03/08/25 06:40 03/06/25 20:50 Labs: Laboratory Results - last 24 hr 03/08/25 06:40: WBC 8.7, RBC 3.23 L, Hgb 10.2 L, Hct 30.1 L, MCV 93.2, MCH 31.6, MCHC 33.9, RDW Std Deviation 44.5 H, RDW Coeff of Dion 13.1, Plt Count 188, MPV 11.5, Immature Gran % (Auto) 0.200, Neut % (Auto) 56.5, Lymph % (Auto) 33.2, [place] % (Auto) 6.5, Eos % (Auto) 3.4, Baso % (Auto) 0.2, Absolute Neuts (auto) 4.9, Absolute Lymphs (auto) 2.90, Nucleated RBC % 0 Physical Exam Narrative Abd: fundus firm. Const alert and oriented x3 General Appearance: cooperative HEENT normocephalic Neck General: normal visual inspection GI soft to palpation and non-distended GI Narrative: Fundus firm Extremity normal to inspection and no calf tenderness Skin no rashes or lesions noted Neuro oriented x3 and CN's II-XII intact bilaterally Psych mental status grossly normal Assessment & Plan Assessment/Plan (1) (spontaneous vaginal delivery): (2) Rh negative state in antepartum period: (3) History of Graves' disease: (4) History of depression: (5) History of anxiety: (6) Chronic hypertension affecting : PLAN: Plan PPD# 1 , Doing well Routine care pain mgmt ambulation BP well controlled
[2025-03-08] MEDS: buPROPion (SR) 100 MG TABLET.SA PO (10:42)
[2025-03-08] MEDS: NIFEdipine 30 MG Tablet PO (10:42)
--- NOTE | 2025-03-08 13:50 | CASEMGMT ---
Social Work Assessment Labor and Delivery Unit Patient Address: [address], [id number] Phone number: [phone] Date of Referral: 03/07/25 Time of Referral:? 1831 Referred By: Dr. James, Dr. Sweet Date of Intervention: ??03/08/25 Time of Intervention:? 1200 Reason for Referral:? substance abuse, mental health Sw completed chart review and acknowledges social work consult due to maternal mental health history, and substance use. Sw presented to bedside and introduced self to mother of baby (REBECCA Ayala). Sw explained reason for sw involvement and completed psychosocial assessment. History obtained from: medical records, MOB Household composition: DAYRON states that currently residing in her home is: DAYRON, her 18 year old son, 14 and 3 year old daughters, and now baby. DAYRON denies any housing concerns, stating that it is safe and secure. DAYRON reports that father of baby (SCOUT Nova) lives in his own residence and has four other children of his own who are: 3, 7, 16 and 18 years old. Patient's parent/guardian status:?DAYRON reports that she and MELI have been together for 1-2 years. DAYRON states that they do not live together but are in committed relationship. DAYRON states that as far as she knows MELI plans on being involved with baby because he is at her house every day. ? Medical History: DAYRON is 39 year old female who is 6, para 4- now 5 following labor and delivery of . DAYRON received care?during with [facility]. DAYRON presented to hospital and delivered baby at 36 weeks gestation via vaginal delivery on 03/07/25. Baby boy, named Fransisco, was born weighing 5lb 12oz with apgars of 8 and 9 at one and five minutes of life, respectfully. DAYRON is bottle feeding and states that baby will be followed by Dr. Daniel for pediatrics. Educational Status:? 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 Financial Status: DAYRON was previously working at [employer], but had to quit prior to delivery due to chronic hypertension during her . MELI is employed at a [employer]. DAYRON states that she has intentions of looking for a jobs several months after delivery. Infant Supplies:?? All necessary baby supplies obtained, including: car seat, safe sleep space, clothes, diapers and wipes. Childcare/Caregiver(s):?DAYRON states that she will be the primary caregiver, when she returns to work she is not sure what she will do for childcare. DAYRON states that right now she has family members helping to watch her other children while she is at the hospital. Transportation:?? Both parents have their drivers license and reliable means of transportation. Programs/Agencies Involved: ???DAYRON is connected to several community agencies that assist her financially, including: S for insurance and SNAP, section 8 housing, WIC and Help [employer] Grow. DAYRON states that she was also receiving benefits from [facility] during her . Children Services/Legal Issues:??? DAYRON denies prior history of children services involvement. DAYRON reports that there is current legal involvement regarding custody of her daughter. DAYRON states that her daughter's father is taking her to court to get full custody so that he does not have to pay child support. Behavioral Health Issues: ??Mental Health History:?DAYRON reports that she has been diagnosed with ADHD, anxiety, and depression. DAYRON is prescribed Wellbutrin and Adderall. DAYRON denies experiencing any baby blues or depression after her other children were born. ?? Substance Use History:?DAYRON denies substance use?prior to and during other than what is prescribed to her from her PCP. Family History: DAYRON denies family history of substance use or significant mental health diagnoses. ? Drug Screens: MOB urine screen positive for amphetamine, baby meconium positive for amphetamine, this is result of MOB use and prescription of Adderall for her ADHD. ?? Family/Social Stressors:? DAYRON did not discuss or inform sw of any issues, concerns or stressors that she has at this time. When sw asked how DAYRON is coping with the upcoming court date, DAYRON stated it is what it is. And did not elaborate any more to the conversation. Support Systems: DAYRON states that her parents and her older siblings are her biggest supports at this time. Depression/Shaken Baby/Safe Sleeping:? Sw educated DAYRON on signs and symptoms of baby blues and depression and anxiety. DAYRON states that she did not struggle with any mental health concerns after her other children was born, and she does not anticipate struggling this time either. DAYRON states that if she were to struggle she would talk to her counselor at Behavioral Health about her concerns. MOB states that her parents are also involved and able to recognize when she is struggling. Sw educated MOB on shaken baby prevention and ABCs of safe sleep, MOB expressed understanding. ASSESSMENT:? MOB and baby admitted following labor and delivery of . Sw presented to bedside earlier in day to meet with MOB, however it appeared as though MOB had just laid down, so sw offered to return at later time. MOB expressed appreciation. Sw returned to bedside later, and MOB still appeared to be laying down and in asleep state, but sw asked if okay to talk at this time, MOB agreed. MOB did not make a lot of eye contact during conversation, and would answer questions but did not elaborate with answers, even when answering open ended questions. MOB appeared to be tired. While talking with MOB, baby asleep peacefully in bassinet, and then nurse took baby for circumcision. MOB has mental health history, but denies ever experiencing any depression or anxiety following her other deliveries. MOB prescribed Adderall for her ADHD and it is assumed that baby's meconium will be reflective of this. MOB receptive to information provided to her and support by demetri. PLAN:? No other services requested or indicated. MOB and baby to be discharged when medically ready. Parents were provided literature regarding: signs and symptoms of baby blues and mood and anxiety disorders, Help Me Grow, shaken baby prevention, ABCs of safe sleep and a list of county resources that are available for them should any needs present themselves. Stewart Capellan, BOOKMAKER'S CLERK, WAFER LINE WORKER
[2025-03-08] MEDS: metroNIDAZOLE 500 MG Tablet PO (15:17)
--- NOTE | 2025-03-09 06:41 | PCM.PN.BLA ---
Progress Note pt had planned to stay until 03/09 due to exacerbation of CHTN however she had notified nursing staff that she did not have anyone to watch her 3 yo child and was goign to leave AMA if not discharged. I made decision for patient to leave- has a follow up in the office March 13 for BP check and has her BP meds at home to continue to take. BPs stable prior to discharge.
--- NOTE | 2025-03-09 06:42 | DCINST_ITS ---
Discharge Instructions Diet Discharge Diet: No restrictions DC O2, CPAP, BIPAP needs Home O2 Discharge instructions: No Dressing / Incision May resume sexual activity in: 6-8 weeks Dressing / Incision Call your doctor if you observe: Fever of 101 or Higher, Inability to urinate, Using more than 1 pad per hour and Uncontrolled pain Follow Up Care Please Follow Up With: Risa Banda MD When: 1 week post and again at 6 weeks post . [phone]: if you had PREECLAMPSIA or other Blood pressure concerns in labor you should be seen in 48-72 hours in the office. Test Results: Test results from this visit will be discussed in further detail at your follow- up appointment, if applicable. Discharge Plan Admission Admit Date/Time: 03/06/25 19:23 Attending Provider: Nini James Primary Care Provider: Care PhysicianTory Primary Instructions Patient Instructions: After a Vaginal Delivery (WP), Understanding Preeclampsia Discharge Orders/Prescriptions Prescriptions: Continued labetalol 300 mg tablet 300 mg PO TID bupropion HCl 100 mg tablet 100 mg PO DAILY famotidine 40 mg tablet 40 mg PO DAILY nifedipine 30 mg tablet extended release 24hr 30 mg PO DAILY Select-OB + DHA 29 mg iron-1 mg -250 mg combo pack 1 pkg PO QHS Discontinued aspirin 81 mg tablet 162 mg PO QHS Referrals / Follow Up: Care Physician,No Primary [Primary Care Provider] - Disposition Disposition (needs filled in before D/C Order can be placed): Home, Self Care
[2025-03-12 08:08] LABS: Amphetamine Positive (.); Amphetamine Ur Confirm Positive (.); AmphetamineGC/MS Conf >3000 ng/mL (Cutoff=500); Methamphetamines Negative (Cutoff=500)
--- NOTE | 2025-03-13 17:38 | NURSING ---
Follow up phone call made, no answer, left voicemail
== END 2025-03-08 20:00 | disposition home or self-care (01) | DRG 560 ==
PROVIDERS: Advanced Practice Midwife; Obstetrics & Gynecology; Admitting Provider Obstetrics & Gynecology; Referring Provider Obstetrics & Gynecology; Visit Provider Obstetrics & Gynecology
DX: O41.03X0 Oligohydramnios, third trimester, not applicable or unspecified (principal); Z37.0 Single live birth; O99.344 Other mental disorders complicating childbirth; F32.A Depression, unspecified; O10.92 Unspecified pre-existing hypertension complicating childbirth; F41.9 Anxiety disorder, unspecified; O69.81X0 Labor and delivery complicated by cord around neck, without compression, not applicable or unspecified; O26.893 Other specified pregnancy related conditions, third trimester; Z67.91 Unspecified blood type, Rh negative; Z3A.36 36 weeks gestation of pregnancy; Z79.82 Long term (current) use of aspirin; Z87.59 Personal history of other complications of pregnancy, childbirth and the puerperium; Z86.718 Personal history of other venous thrombosis and embolism; Z79.899 Other long term (current) drug therapy
CPT/HCPCS: 59025; 59050; 76819; 80307; 82565; 82570; 84156; 84450; 84460; 84550; 85025; 86780; 86850; 86900; 86901; 88307; 99221; G0378